=== PATIENT | male | born 1955 | race Caucasian/White ===

== ENCOUNTER → 2021-11-19 | Day surgery (SDC) | payer OTHER ==
[~2021-11-19] VITALS: Ht 182.9 cm; Wt 106.1 kg
[~2021-11-19] MED LIST: ANTIVERT25 MG PO; CERTAGEN1 EACH PO; CINNAMON PLUS1 EACH PO; CRESTOR10 MG PO; FLONASE ALLER15.8 ML; JARDIANCE10 MG PO; LOVAZA1 GM PO; METAMUCIL1 DOSE PO; METFORMIN HCL500 MG PO; NORCO 5-325 TA1 EACH PO; ONDANSETRON ODT8 MG PO; TUMERIC; VIT D3 PO; ZINC50 M1 PO; [UNRECOGNIZED DRUG - CODE] PO
[2021-11-19 09:43] LABS: HCT 47.9 % (42.0-52.0); HGB 15.7 g/dl (13.2-18.0); MCHC 32.8 g/dL (32.0-36.0); MCV 85.5 fL (78.0-100.0); MPV 9.3 fL (6.0-9.5); RBC 5.6 M/uL (4.70-6.00); RDW 13.1 % (11.5-14.0); WBC 10.4 K/uL (4.0-10.5)
[2021-11-19 10:06] LABS: ALBUMIN 3.6 g/dL (3.4-5.0); BUN/CREAT RATIO (CALC) 24.6 RATIO; CREATININE 0.61 mg/dL (0.67-1.17); GLOBULIN (CALCULATION) 4.2 g/dL; POTASSIUM 3.8 mmol/L (3.5-5.1); TOTAL PROTEIN 7.8 g/dL (6.4-8.2)
== END | disposition home or self-care (01) ==
LOC: FAS 08:40 → EDBD 10:00
PROVIDERS: Surgery
DX: K80.10 Calculus of gallbladder with chronic cholecystitis without obstruction (principal); K66.0 Peritoneal adhesions (postprocedural) (postinfection); Z79.82 Long term (current) use of aspirin
CPT/HCPCS: 36415; 74300; 80053; C1758; J0171; J2250; J2405; J2704; J3010; J7120; Q9967